=== PATIENT | female | born 1985 | race Caucasian/White ===

== ENCOUNTER 2023-06-26 14:32 | Emergency (ER) | payer OTHER, SELFPAY ==
[2023-06-26 14:39] VITALS: BP 128/82; PULSE 98; RESP 18; TEMP 36.1; O2SAT 100; BMI 32.1
--- NOTE | 2023-06-26 15:02 | CRLHL7_ITS ---
For Patients: As a result of the Century Cures Act, medical imaging exams and procedure reports are released immediately into your electronic medical record. You may view this report before your referring provider. If you have questions, please contact your health care provider. INDICATION: Left upper quadrant pain TECHNIQUE: CT abdomen and pelvis acquired with 89 cc Isovue 370 IV contrast. COMPARISON: None. FINDINGS: Lower chest: Unremarkable. Liver: Unremarkable. Normal in size and attenuation. No suspicious masses. Gallbladder and bile ducts: S/p cholecystectomy. No biliary dilatation. Pancreas: Unremarkable. No mass or inflammation. Spleen: Unremarkable. Normal in size. No masses. Adrenal glands: Unremarkable. No nodules. Kidneys: Unremarkable. No suspicious masses, stones, or hydronephrosis. GI tract: Unremarkable. Normal in caliber. No sign of mass or inflammation. The appendix is not discretely visualized; however, there are no inflammatory changes in the right lower quadrant to suggest acute appendicitis. Vasculature: Abdominal aorta is normal in caliber. Mesenteric arteries are patent. Lymph nodes: No lymphadenopathy. Peritoneum/Abdominal Wall: Unremarkable. No sign of mass or infiltration. No free air or significant free fluid. Pelvis: Mild circumferential bladder wall thickening, likely secondary to underdistention. No focal bladder wall masses or lesions. The uterus and bilateral ovaries are within normal limits in appearance. Well-positioned intrauterine device. Bones: Unremarkable for age. IMPRESSION: No CT evidence of an acute process involving the abdomen or pelvis. Please note that all CT scans at this facility use dose modulation, iterative reconstruction, and/or weight-based dosing when appropriate to reduce radiation dose to as low as reasonably achievable. Dictated by Paresh Bruno MD @ 06/26/2023 4:40:29 PM (Electronically Signed)
--- NOTE | 2023-06-26 15:04 | ED_ITS ---
HPI - Abdominal Pain General Chief Complaint: Abdominal Pain Stated Complaint: Abdominal pain Time Seen by Provider: 06/26/23 14:43 History of Present Illness HPI narrative: This 37-year-old female comes in reporting left upper quadrant abdominal pain that began a couple hours prior to arrival. It came on rather suddenly and now has dissipated significantly. She states that she has been having pain like this on and off over the past couple years. She did have her gallbladder remov ed a couple years ago but this did not bring lasting relief to these particular symptoms. She states that she has had CT and MRI imaging in the more distant past. She does not report any fever, vomiting, dysuria, or or altered bowel function. She has had some nausea related to this. Related Data Home Medications Medication Instructions Recorded Confirmed cetirizine 10 mg tablet (Zyrtec) 10 mg PO DAILY PRN 06/26/23 06/26/23 citalopram 40 mg tablet 40 mg PO DAILY 06/26/23 06/26/23 methylphenidate HCl 36 mg 36 mg PO DAILY 06/26/23 06/26/23 tablet,extended release 24 hr omeprazole 20 mg delayed 20 mg PO PRN 06/26/23 06/26/23 release,disintegrating tablet topiramate 100 mg tablet (Topamax) 100 mg PO DAILY 06/26/23 06/26/23 Previous Rx's Medication Instructions Recorded ketorolac 10 mg tablet 10 mg PO Q8H 5 days #15 tabs 06/26/23 ondansetron HCl 4 mg tablet 4 mg PO Q6H #20 tabs 06/26/23 Allergies Allergy/AdvReac Type Severity Reaction Status Date / Time No Known Drug Allergies Allergy Verified 06/26/23 14:38 Review of Systems Status of ROS Reports: 10 or more systems reviewed and unremarkable except as noted in History and below Narrative Constitutional: No fevers, no weight gain or loss. Eyes: No discharge. No vision changes. HENT: No congestion, no sore throat, no ear pain. Cardiovascular: No chest pain, no palpitations. Respiratory: No shortness of breath, no wheezes, no cough. Gastrointestinal: No vomiting, no diarrhea. Left upper quadrant abdominal pain. Nausea. Genitourinary: No dysuria, no hematuria. Musculoskeletal: Normal range of motion. Skin: No rashes, no pruritis. Neurological: No dizziness, weakness, sensory change, speech change. Endo/Heme/Allergies: No bruising or bleeding. No polydipsia. Pysch: no suicidality, no anxiety, no insomnia. All other systems reviewed and are negative. [facility] Social History Smoking Status: Never smoker How often do you have a drink containing alcohol: 2-4 times a month How often do you have six or more drinks on one occasion: Less than monthly AUDIT-C Alcohol total score: 3 Non-prescribed substance use: denies use Exam Narrative: Exam Narrative: Constitutional: Well-developed, well-nourished, no acute distress. HEENT: Normocephalic, atraumatic. Neck: Normal range of motion. Nontender. Supple. Heart: Regular. No murmurs. Normal rate. Intact distal pulses. Lungs: Clear to auscultation. No chest discomfort. No wheezes, rhonchi, or rales. Abdomen: Normal bowel sounds. Mild tenderness in left upper quadrant. No rebound tenderness. Genitalia: Deferred. Back: No midline tenderness. Normal range of motion. Extremities: Normal range of motion. No injury. Skin: Intact. No rash. Warm. No erythema or pallor. Neurologic: No altered sensation. No weakness. Alert and oriented. Psychiatric: No suicidality. No anxiety or depression. No insomnia. Nursing notes and vitals signs are reviewed. Const: Vital Signs, click to edit/add: Vital Signs - 24 hr 06/26/23 14:39 06/26/23 16:39 Temperature 96.9 F L Pulse Rate [Pulse Oximeter] 98 82 Respiratory Rate 18 Blood Pressure [Ri ght Upper Arm] 128/82 128/81 Pulse Oximetry 100 98 Oxygen Delivery Me thod Room Air Room Air Course Vital Signs Vital signs: Initial Vital Signs Temperature 96.9 F L 06/26/23 14:39 Temperature Source Temporal Artery Scan 06/26/23 14:39 Pulse Rate 98 06/26/23 14:39 Pulse Rhythm Regular 06/26/23 14:39 Respiratory Rate 18 06/26/23 14:39 Blood Pressure 128/82 06/26/23 14:39 Blood Pressure Mean 97 06/26/23 14:39 Pulse Oximetry 100 06/26/23 14:39 Oxygen Delivery Method Room Air 06/26/23 14:39 Vital Signs Temperature 96.9 F L 06/26/23 14:39 Pulse Rate 98 06/26/23 14:39 Respiratory Rate 18 06/26/23 14:39 Blood Pressure 128/82 06/26/23 14:39 Pulse Oximetry 100 06/26/23 14:39 Oxygen Delivery Method Room Air 06/26/23 14:39 Temperature 96.9 F L 06/26/23 14:39 Pulse Rate 82 06/26/23 16:39 Respiratory Rate 18 06/26/23 14:39 Blood Pressure 128/81 06/26/23 16:39 Pulse Oximetry 98 06/26/23 16:39 Oxygen Delivery Method Room Air 06/26/23 16:39 MDM - Abdominal Pain MDM Narrative Medical decision making narrative: This patient comes in with the severe episode of upper epigastric pain left of midline. She has been having episodes of pain like this on and off over the past couple years. At the time that she arrives here her pain is significantly improved. She arrives with normal vital signs. Her exam is also reassuring in that she does not have any rebound tenderness and does have normal bowel sounds. I did discuss lab and imaging options and the patient would like to have imaging done. An IV was established and CT scan of the abdomen and pelvis is obtained which shows no acute findings to explain her symptoms. Additionally lab results are also reassuring including a normal lipase level. This patient has had her gallbladder removed. She does have an appointment in a month or so to have upper GI and colonoscopy studies done. She is okay to be discharged home. She did received prescription for Toradol and Zofran. I advised her to take Prilosec daily. Lab Data Labs: Lab Results 06/26/23 Range/Units 15:25 Sodium 139 (135-149) mmol/L Potassium 3.2 L (3.6-5.1) mmol/L Chloride 106 (96-114) mmol/L Carbon Dioxide 23 (20-32) mmol/L Anion Gap 10 (7-15) mEq/L BUN 9 (5-24) mg/dL Creatinine 0.7 (0.5-1.5) mg/dL Estimated Creat Clear 92.79 Estimated GFR 116 ml/min Glucose 100 (60-115) mg/dL Calcium 9.3 (8.4-10.6) mg/dL C-Reactive Protein < 0.5 L (0.5-1.0) mg/dL Lipase 112 (23-300) U/L HCG, Qual Negative (Negative) Imaging Data CT scan - abdomen: Radiologist's impression: No CT evidence of an acute process involving the abdomen or pelvis. Discharge Plan Discharge Clinical Impression: Abdominal pain Patient Disposition: Home, Self-Care Condition: Stable Additional Instructions: Take medication as needed and indicated. Follow up with endoscopy and colonoscopy as scheduled. Follow-up with primary physician as needed or return if worsening. Prescriptions: New ondansetron HCl 4 mg tablet 4 mg PO Q6H Qty: 20 0RF ketorolac 10 mg tablet 10 mg PO Q8H 5 Days Qty: 15 0RF No Action topiramate [Topamax] 100 mg tablet 100 mg PO DAILY omeprazole 20 mg tablet,disintegrat, delay rel 20 mg PO PRN citalopram 40 mg tablet 40 mg PO DAILY cetirizine [Zyrtec] 10 mg tablet 10 mg PO DAILY PRN methylphenidate HCl 36 mg tablet extended release 24hr 36 mg PO DAILY Follow Up/Referrals: Provider,Not a Local [Primary Care Provider] - Stand Alone Forms: [email or web address] Info Instructions
[2023-06-26 15:48] LABS: Chloride* 106 mmol/L (96-114); Potassium* 3.2 mmol/L (3.6-5.1); Sodium* 139 mmol/L (135-149)
[2023-06-26 15:50] LABS: Creatinine* 0.7 mg/dL (0.5-1.5); Est. Creatinine Clearance* 92.79; Estimated Glomerular Filt Rate 116 ml/min; HCG Qualitative Serum* Negative (Negative); Lipase* 112 U/L (23-300)
[2023-06-26 15:51] LABS: Anion Gap 10 mEq/L (7-15); Blood Urea Nitrogen* 9 mg/dL (5-24); Carbon Dioxide* 23 mmol/L (20-32); Glucose* 100 mg/dL (60-115)
[2023-06-26 15:52] LABS: Calcium* 9.3 mg/dL (8.4-10.6)
[2023-06-26 15:59] LABS: C Reactive Protein* < 0.5 mg/dL (0.5-1.0)
[2023-06-26 16:39] VITALS: BP 128/81; PULSE 82; O2SAT 98
== END 2023-06-26 17:15 | disposition home or self-care (01) ==
PROVIDERS: Emergency Provider Emergency Medicine Emergency Medical Services
DX: R10.12 Left upper quadrant pain (principal)
CPT/HCPCS: 36415; 74177; 80048; 83690; 84703; 86140; 95992; 99283; 99284; Q9967